=== PATIENT | female | born 2000 ===

== ENCOUNTER 2020-11-04 19:32 | Emergency (ER) | payer OTHER ==
[~2020-11-04] VITALS: Ht 154.9 cm; Wt 54.4 kg
[2020-11-05] MEDS ORDERED: NAPROXEN375 MG PO (04:43)
[2020-11-05] MEDS ORDERED: BACTRIM DS TAB1 EACH PO (04:45)
== END 2020-11-05 05:13 | disposition home or self-care (01) ==
LOC: ER 19:32
DX: R10.2 Pelvic and perineal pain (principal)